=== PATIENT | female | born 1980 | race American Indian/Alaskan Native ===

== ENCOUNTER 2018-02-10 22:02 | Emergency (ER) | payer MEDICARE ==
[2018-02-10 22:03] VITALS: BMI 36.2
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
[2018-02-10 23:17] LABS: BASO # 0.06 K/mm3 (0.0-2.0); BASO % 0.8 % (0.0-3.0); EOS # 0.6 (0.0-0.7); EOS % 8.7 % (1.5-5.0); GRAN # 3.01 (1.4-6.5); GRAN % 40.8 % (50.0-68.0); LYMPH # 3.1 (1.2-3.4); LYMPH % 41.8 % (22.0-35.0); MEAN CORPUSCULAR HEMOGLOBIN 29.1 pg (25.0-35.0); MEAN CORPUSCULAR HGB CONC 33.8 g/dl (31.0-37.0); MEAN PLATELET VOLUME 8.7 fl (7.0-11.0); MONO # 0.6 (0.1-0.6); MONO % 7.9 % (1.0-6.0); RBC 3.78 10^6/uL (3.5-6.1); RED CELL DISTRIBUTION WIDTH 16.4 % (11.5-14.5); WHITE BLOOD COUNT 7.4 10^3/ul (4.5-11.0)
[2018-02-10 23:28] LABS: ACETAMINOPHEN < 10.0 ug/ml (10.0-20.0); SALICYLATE < 1 mg/dL (2.0-20.0)
[2018-02-10 23:29] LABS: ALB/GLOB RATIO 0.7 (1.1-1.8); ALBUMIN 3.7 g/dL (3.0-4.8); CALCIUM 8.9 mg/dL (8.4-10.5)
[2018-02-11 05:38] LABS: ACETAMINOPHEN < 10.0 ug/ml (10.0-20.0); SALICYLATE < 1 mg/dL (2.0-20.0)
--- NOTE | 2018-02-11 08:30 | RAD ---
Date of service: 02/11/2018 PROCEDURE: CHEST RADIOGRAPH, 1 VIEW HISTORY: medical clearance COMPARISON: None available. FINDINGS: LUNGS: Clear. PLEURA: No pneumothorax or pleural fluid seen. CARDIOVASCULAR: Normal. OSSEOUS STRUCTURES: No significant abnormalities. VISUALIZED UPPER ABDOMEN: Normal. OTHER FINDINGS: None. IMPRESSION: No active disease.
[2018-02-11 11:51] LABS: URINE BILIRUBIN NEGATIVE (NEGATIVE); URINE BLOOD LARGE (NEGATIVE); URINE GLUCOSE (UA) NEGATIVE (NEGATIVE); URINE LEUKOCYTE ESTERASE LARGE Leu/uL (NEGATIVE); URINE PROTEIN >=300 mg/dL (<30 mg/dL); URINE UROBILINOGEN 0.2 E.U./dL (<1 E.U./dL)
[2018-02-11 11:54] LABS: URINE APPEARANCE CLOUDY (CLEAR); URINE COLOR LIGHT YELLOW (YELLOW)
[2018-02-11 11:58] LABS: URINE BACTERIA MANY (NEG); URINE WBC TNTC /hpf (0-6)
[2018-02-11 11:59] LABS: URINE RBC 15 - 20 /hpf (0-2)
[2018-02-11 12:30] LABS: BARBITURATES, UR NEGATIVE (NEGATIVE); BENZODIAZEPINES, UR NEGATIVE (NEGATIVE); OPIATES, UR NEGATIVE (NEGATIVE); PHENCYCLIDINE, UR NEGATIVE (NEGATIVE)
--- NOTE | 2018-02-11 16:09 | ED PDOC ---
Physical Exam Vital Signs Reviewed: Yes Vital Signs Temp Pulse Resp BP Pulse Ox 02/11/18 07:23 84 18 157/88 H 100 02/11/18 04:53 98.1 F 102 H 17 142/92 H 98 02/11/18 02:00 98.4 F 75 18 155/88 H 100 02/11/18 00:03 98.4 F 70 18 159/89 H 100 02/10/18 22:44 98.7 F 78 19 161/99 H 100 Temperature: Afebrile Appearance: Positive for: Well-Appearing, Non-Toxic, Comfortable Medical Decision Making ED Course and Treatment: 02/11/18 16:06 Patient reassessed by me. Patient endorsed to me from previous shift. I reviewed patient's previous records and re-examined patient. The patient DENIES overdosing on any medication. The patient DENIES any suicidal ideation. Labs were reviewed with patient. I have discussed his creatinine and labs with patient. Patient has no chest pain or shortness of breath or fever or acute swelling. UA reviewed. Patient denies dysuria or frequency. Will treat with antibiotics for possible uti. Patient cleared by PES for discharge. Patient denies allergies to any antibiotics. - Lab Interpretations Lab Results: 02/10/18 23:10 02/10/18 23:10 Lab Results 02/11/18 11:35: Urine Opiates Screen Negative, Urine Methadone Screen Negative, Ur Barbiturates Screen Negative, Ur Phencyclidine Scrn Negative, Ur Amphetamines Screen Negative, U Benzodiazepines Scrn Negative, U Oth Cocaine Metabols Negative, U Cannabinoids Screen Negative 02/11/18 11:35: Urine Color Light yellow, Urine Appearance Cloudy, Urine pH 6.0 , Ur Specific [place] 1.025, Urine Protein >=300 H, Urine Glucose (UA) Negative , Urine Ketones Negative, Urine Blood Large H, Urine Nitrate Negative, Urine Bilirubin Negative, Urine Urobilinogen 0.2, Ur Leukocyte Esterase Large H, Urine RBC 15 - 20, Urine WBC Tntc, Urine Bacteria Many, Urine HCG, Qual Cancelled 02/11/18 05:00: Salicylates < 1 L, Acetaminophen < 10.0 L 02/10/18 23:10: Alcohol, Quantitative < 10 02/10/18 23:10: Salicylates < 1 L, Acetaminophen < 10.0 L 02/10/18 23:10: Sodium 143, Potassium 4.6, Chloride 113 H, Carbon Dioxide 16 L, Anion Gap 18, BUN 55 H, Creatinine 3.4 H, Est GFR ( Amer) 18, Est GFR ( Non-Af Amer) 15, Random Glucose 153 H, Calcium 8.9, Total Bilirubin 0.6, AST 49 H D, ALT 53, Alkaline Phosphatase 131 H D, Total Protein 8.8 H, Albumin 3.7, Globulin 5.1, Albumin/Globulin Ratio 0.7 L 02/10/18 23:10: WBC 7.4, RBC 3.78, Hgb 11.0 L, Hct 32.5 L, MCV 86.0, MCH 29.1, MCHC 33.8, RDW 16.4 H, Plt Count 256, MPV 8.7, Gran % 40.8 L, Lymph % (Auto) 41.8 H, [place] % (Auto) 7.9 H, Eos % (Auto) 8.7 H, Baso % (Auto) 0.8, Gran # 3.01 , Lymph # (Auto) 3.1, [place] # (Auto) 0.6, Eos # (Auto) 0.6, Baso # (Auto) 0.06 - RAD Interpretation Radiology Orders: 02/10/18 23:10 CHEST ONE VIEW [RAD] Stat - Medication Orders Current Medication Orders: Discontinued Medications Haloperidol Lactate (Haldol) 5 mg IM STAT STA PRN Reason: Protocol Stop: 02/11/18 04:17 Last Admin: 02/11/18 04:19 Dose: IM Administration Charges Document 02/11/18 04:19 IT (Rec: 02/11/18 04:19 IT [id number]) Charges for Administration # of IM Administrations 1 Lorazepam (Ativan) 2 mg IM ONCE ONE PRN Reason: Protocol Stop: 02/11/18 04:17 Last Admin: 02/11/18 04:18 Dose: Disposition/Present on Arrival - Present on Arrival Any Indicators Present on Arrival: No History of DVT/PE: No History of Uncontrolled Diabetes: No Urinary Catheter: No History of Decub. Ulcer: No History Surgical Site Infection Following: None - Disposition Have Diagnosis and Disposition been Completed?: Yes Diagnosis: Depression, UTI (urinary tract infection), Anxiety Disposition: HOME/ ROUTINE Disposition Time: 16:09 Patient Plan: Discharge Patient Problems: Current Active Problems Problem Status Onset Depression Chronic Condition: GOOD Discharge Instructions (ExitCare): Depression, Adult (DC), Urinary Tract Infections in Adults Additional Instructions: CHATA VELA, thank you for letting us take care of you today. Your provider was Maria Del Carmen Cedeno MD and you were treated for DEPRESSION. The emergency medical care you received today was directed at your acute symptoms. If you were prescribed any medication, please fill it and take as directed. It may take several days for your symptoms to resolve. Return to the Emergency Department if your symptoms worsen, do not improve, or if you have any other problems. Please contact your doctor or call one of the physicians/clinics you have been referred to that are listed on the Patient Visit Information form that is included in your discharge packet. Bring any paperwork you were given at discharge with you along with any medications you are taking to your follow up visit. Our treatment cannot replace ongoing medical care by a primary care provider outside of the emergency department. Thank you for allowing the [facility] team to be part of your care today. If you had a blood, urine, or wound culture: It will take several days for the results, if any change in treatment is needed we will contact you. Take antibiotics as directed for possible urine infection. If you develop any pain, fevers, shortness of breath, rash, or any new or persistent symptoms get rechecked. Prescriptions: Cephalexin [cephalexin] 500 mg PO TID #21 cap Forms: [employer] (Bermudian)
[2018-02-11 17:44] VITALS: BP 147/66; PULSE 88; RESP 18; TEMP 98.2; O2SAT 99
--- NOTE | 2018-02-11 21:01 | CARD ---
APPROVED REPORT Date of service: 02/10/2018 EKG Measurement Heart [id number] <Conclusion> Normal sinus rhythm Septal infarct, age undetermined Abnormal ECG
== END 2018-02-11 17:00 | disposition home or self-care (01) ==
LOC: ED 22:02
DX: N39.0 Urinary tract infection, site not specified (principal); F41.9 Anxiety disorder, unspecified; F32.9 Major depressive disorder, single episode, unspecified; I10 Essential (primary) hypertension; Z87.891 Personal history of nicotine dependence; Z99.3 Dependence on wheelchair; Z21 Asymptomatic human immunodeficiency virus [HIV] infection status
CPT/HCPCS: 71045; 80053; 81001; 85025; 87086; 93005; 96372; 99285; G0480; J1630; J2060